=== PATIENT | male | born 1985 | race Caucasian/White ===

== ENCOUNTER 2016-09-11 14:54 | Emergency (ER) | payer MEDICARE, OTHER ==
[~2016-09-11 14:54] MED LIST: DICLOFENAC PO; KEFLEX500 MG PO; ULTRAM PO
== END 2016-09-11 15:12 | disposition left against medical advice (07) ==
LOC: CED 14:54
DX: Z53.21 Procedure and treatment not carried out due to patient leaving prior to being seen by health care provider (principal)